=== PATIENT | female | born 1980 | race Caucasian/White ===

== ENCOUNTER 2018-06-29 21:46 | Emergency (ER) | payer OTHER ==
[~2018-06-29] VITALS: Ht 167.6 cm; Wt 104.3 kg
[2018-06-29 21:59] VITALS: BP 135/72
[2018-06-29 22:10] VITALS: BP 134/76
== END 2018-06-29 22:10 | disposition home or self-care (01) ==
LOC: MED 21:46
DX: K04.7 Periapical abscess without sinus (principal); M84.68XA Pathological fracture in other disease, other site, initial encounter for fracture
CPT/HCPCS: 99283